=== PATIENT | male | born 1990 | race Caucasian/White ===

== ENCOUNTER 2019-12-25 21:54 | Emergency (ER) | payer SELFPAY ==
[~2019-12-25] VITALS: Ht 182.9 cm; Wt 80.9 kg
[2019-12-25 22:23] VITALS: BP 130/83; Ht 182.9 cm; Wt 80.9 kg
== END 2019-12-25 23:15 | disposition home or self-care (01) ==
LOC: ED 21:54
DX: S01.511A Laceration without foreign body of lip, initial encounter (principal); X58.XXXA Exposure to other specified factors, initial encounter; Y93.89 Activity, other specified; Y92.89 Other specified places as the place of occurrence of the external cause; Y99.8 Other external cause status
CPT/HCPCS: 90715

== ENCOUNTER 2019-12-27 19:39 | Emergency (ER) | payer MEDICAID ==
[~2019-12-27] VITALS: Ht 182.9 cm; Wt 81.6 kg
[2019-12-27 19:41] VITALS: Ht 182.9 cm; Wt 81.6 kg
[2019-12-27 20:00] VITALS: BP 113/70
== END 2019-12-27 20:00 | disposition home or self-care (01) ==
LOC: ED 19:39
DX: S01.511D Laceration without foreign body of lip, subsequent encounter (principal); X58.XXXD Exposure to other specified factors, subsequent encounter

== ENCOUNTER 2019-12-30 17:12 | Emergency (ER) | payer MEDICAID ==
[~2019-12-30] VITALS: Ht 182.9 cm; Wt 82.1 kg
[2019-12-30 17:20] VITALS: BP 127/40
== END 2019-12-30 18:30 | disposition home or self-care (01) ==
LOC: ED 17:12
DX: S01.511D Laceration without foreign body of lip, subsequent encounter (principal); X58.XXXD Exposure to other specified factors, subsequent encounter